=== PATIENT | male | born 1980 | race Caucasian/White ===

== ENCOUNTER → 2016-10-13 | Outpatient (CLI) | payer OTHER ==
[~2016-10-13] MED LIST: AMOXICILLIN PO; BACTRIM DS TABL1 TAB PO; CIPRO PO; COLACE1 SUPP.RE1 RC; DARVOCET-N 1001 TAB PO; DOCUSATE SODIU100 MG PO; EC-NAPROSYN500 MG PO; FLEXERIL10 MG PO; GENOPTIC5 ML OP; LINZESS290 MCG PO; MIRALAX17 GM DOB; MOVANTIK25 MG PO; NO MEDICATIONS; PERCOCET5/325 PO; PHENERGAN25 MG PO; PREVACID PO; SUBOXONE 8 MG-1 EAC1 PO; VICODIN 5/500 T1 TAB PO
--- NOTE | ~2016-10-13 | CR170 ---
[facility]. [facility] A Service of [facility] & [facility] RADIOLOGY TEXT RESULTS PATIENT: MAYDA BUSTILLO JR LOCATION: [facility] : 84 UNIT #: [id number] AGE: [address]: TASHA DU APRN SEX: M ORDER DR: [id number] [address] [address] [id number] O MR#: [id number] Acc #: [id number] NAME: MAYDA BUSTILLO : 1980 SEX: M STUDY DATE/TIME: 10/13/2016 21:01 UNIT: [facility] ROOM: STUDY DESCRIPTION: CR Knee 2 Views Rt Attending Physician: Tahsa Du Aprn Ordering Physician: Tasha Du Aprn Primary Care Physician: Tasha Du Aprn MEDICAL IMAGING REPORT This report is preliminary unless electronic signature is present. EXAM Right knee series 10/13/2016. HISTORY Bilateral knee pain and swelling, left worse than right. Per patient began two weeks ago. No known injury. 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 TECHNIQUE AP and lateral radiographs of the right knee are presented. FINDINGS Normal bony mineralization. Alignment normal. No fracture. Joint spaces intact. No acute appearing soft tissue abnormality and no joint effusion. If it would assist in patient management, knee could be further assessed with MRI if the patient is a candidate. Dictated by... Sincere Covarrubias M.D. THIS IS AN ELECTRONICALLY VERIFIED REPORT Sincere Covarrubias M.D. at 10/14/2016 5:53 PM LEOBARDO/stephanie TD: 10/14/2016 11:35 JOB #: [id number] MEDICAL IMAGING REPORT
--- NOTE | ~2016-10-13 | CR169 ---
[facility]. [facility] A Service of [facility] & [facility] RADIOLOGY TEXT RESULTS PATIENT: MAYDA BUSTILLO JR LOCATION[facility] : 84 UNIT #: [id number] AGE: [address]: TASHA DU APRN SEX: M ORDER DR: [id number] [address] [address] [id number] O MR#: [id number] Acc #: [id number] NAME: MAYDA BUSTILLO : 1980 SEX: M STUDY DATE/TIME: 10/13/2016 21:01 UNIT: [facility] ROOM: STUDY DESCRIPTION: CR Knee 2 Views Lt Attending Physician: Tasha Du Aprn Ordering Physician: Tasha Du Aprn Primary Care Physician: Tasha Du Aprn MEDICAL IMAGING REPORT This report is preliminary unless electronic signature is present. EXAM Left knee series, 10/13/2016. HISTORY Bilateral knee pain. Began 2 weeks ago. 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 Bilateral knee pain, swelling left worst than right per patient. TECHNIQUE AP and lateral radiographs of the left knee are presented. FINDINGS Normal bony mineralization and alignment. No fracture. Joint spaces intact. No acute-appearing soft tissue abnormality. No joint effusion. If it would assist in management, knee could be further evaluated with MRI if patient is a candidate. Dictated by... Sincere Covarrubias M.D. THIS IS AN ELECTRONICALLY VERIFIED REPORT Sincere Covarrubias M.D. at 10/14/2016 5:53 PM LEOBARDO/femi TD: 10/14/2016 11:41 JOB #: [id number] MEDICAL IMAGING REPORT
== END | disposition home or self-care (01) ==
LOC: SRAD 20:54
DX: M25.561 Pain in right knee (principal); M25.562 Pain in left knee; M25.461 Effusion, right knee; M25.462 Effusion, left knee
CPT/HCPCS: 73560

== ENCOUNTER 2017-04-19 15:19 | Emergency (ER) | payer OTHER ==
[2017-04-19 16:08] LABS: URINE SOURCE CLEAN CATCH
[2017-04-19 16:11] LABS: URINE APPEARANCE CLEAR; URINE BILIRUBIN NEG (NEG); URINE BLOOD NEG (NEG); URINE COLOR YELLOW; URINE GLUCOSE NEG (NORM); URINE KETONE NEG (NEG); URINE LEUKOCYTE ESTERASE NEG (NEG); URINE NITRATE NEG (NEG); URINE PROTEIN NEG (NEG); URINE UROBILINOGEN 0.2 MG/DL (NORM)
[2017-04-19 16:12] LABS: MICRO INDICATED? NO
== END 2017-04-19 16:29 | disposition left against medical advice (07) ==
LOC: SED 15:19
PROVIDERS: Physician Assistant
DX: R10.9 Unspecified abdominal pain (principal); F41.9 Anxiety disorder, unspecified; F17.210 Nicotine dependence, cigarettes, uncomplicated; Z88.0 Allergy status to penicillin; Z88.8 Allergy status to other drugs, medicaments and biological substances; Z79.899 Other long term (current) drug therapy
CPT/HCPCS: 81003; 99284; J2405